=== PATIENT | female | born 1945 | race Caucasian/White ===

== ENCOUNTER 2021-09-19 11:43 | Outpatient (CLI) | payer MEDICARE | END 2021-09-19 11:44 | disposition home or self-care (01) | LOC: SCSRAD 11:43 | PROVIDERS: ATTEND Family Medicine | DX: R05.9 Cough, unspecified (principal); R91.8 Other nonspecific abnormal finding of lung field | CPT/HCPCS: 71046 ==

== ENCOUNTER 2024-02-16 10:56 | Outpatient (CLI) | payer MEDICARE ==
[2024-02-16] MEDS ORDERED: E-Z-HD 98% W/W 340GM BOT (x-ray ONLY) ONE (11:11)
[2024-02-16] MEDS ORDERED: Barium Sulfate 96% 176 GM BOT (xray ONLY) ONE (11:11)
== END 2024-02-16 10:57 | disposition home or self-care (01) ==
LOC: RAD 10:56
PROVIDERS: ATTEND Physician Assistant Medical
DX: R05.3 Chronic cough (principal); R09.A2 Foreign body sensation, throat; R13.10 Dysphagia, unspecified; K21.9 Gastro-esophageal reflux disease without esophagitis
CPT/HCPCS: 74220

== ENCOUNTER 2024-04-21 12:42 | Outpatient (CLI) | payer MEDICARE ==
[2024-04-21] MEDS ORDERED: Iopamidol 370 76% 100 ML VIAL ONE (15:50)
== END 2024-04-21 12:43 | disposition home or self-care (01) ==
LOC: CT 12:42
PROVIDERS: ATTEND Internal Medicine Gastroenterology
DX: R13.10 Dysphagia, unspecified (principal); K22.2 Esophageal obstruction; R93.3 Abnormal findings on diagnostic imaging of other parts of digestive tract; J84.178 Other interstitial pulmonary diseases with fibrosis in diseases classified elsewhere; K51.40 Inflammatory polyps of colon without complications
CPT/HCPCS: 70492; 82565; Q9967